=== PATIENT | female | born 1990 | race Caucasian/White ===

== ENCOUNTER 2020-08-24 17:16 | Emergency (ER) | payer SELFPAY ==
[~2020-08-24] VITALS: Wt 56.7 kg
[~2020-08-24 17:16] MED LIST: ATIVAN1 MG PO; DIFLUCAN100 MG PO; KETOCONAZOLE S TP; MACROBID100 M1 PO; NO DAILY MEDS; PRENATAL1 TA1 PO; PROVENTIL0.09 MG/AC IH; ROBITUSSIN DM120 ML PO; ZITHROMAX Z PA250 MG PO
[2020-08-24] MEDS ORDERED: Tobrex Ophth S2.5 ML OPH (17:37)
== END 2020-08-24 17:39 | disposition home or self-care (01) ==
LOC: ED 17:16
DX: H00.016 Hordeolum externum left eye, unspecified eyelid (principal); Z79.899 Other long term (current) drug therapy

== ENCOUNTER 2025-09-19 10:53 | Emergency (ER) | payer OTHER ==
[~2025-09-19] VITALS: Ht 170.1 cm; Wt 49.9 kg
[~2025-09-19 10:53] MED LIST changes: +Tobrex Ophth S2.5 ML OPH
[2025-09-19 12:05] LABS: BASO # 0.1 10*3/uL (0.0-0.1); BASO % 1.5 % (0.0-1.0); EOS # 1.4 10*3/uL (0.0-0.4); EOS % 15.9 % (1.0-4.0); MEAN CELL VOLUME 93.8 fl (81.0-99.0); MEAN CORPUSCULAR HGB 31.1 pg (27.0-31.0); MEAN PLATELET VOLUME 9.6 fl (9.6-12.3); MONO # 0.5 10*3/uL (0.1-1.0); MONO % 5.3 % (3.0-9.0); NEUT # 3.9 10*3/uL (2.3-7.9); NEUT % 44.8 % (47.0-73.0); NUCLEATED RED BLOOD CELL 0.0 % (0.0-0.0); NUCLEATED RED BLOOD CELL 0.0 10*3/uL (0.0-0.0); PLATELET COUNT AUTOMATED 311 10*3/uL (130-400); RED CELL DISTRI WIDTH 13.3 % (0-14.5)
[2025-09-19 12:23] LABS: BUN 9 mg/dl (9-23); SGPT/ALT 10 U/L (5-49)
[2025-09-19] MEDS ORDERED: ZITHROMAX250 MG PO (13:00)
[2025-09-19] MEDS ORDERED: MEDROL DOSEPAK4 MG PO (13:00)
[2025-09-19] MEDS ORDERED: ALBUTEROL 8 GM INHALER INH ONE (13:05)
[2025-09-19] MEDS ORDERED: BENZONATATE100 M1 PO (13:06)
== END 2025-09-19 13:36 | disposition home or self-care (01) ==
LOC: ED 10:53
PROVIDERS: Nurse Practitioner
DX: J40 Bronchitis, not specified as acute or chronic (principal); F32.A Depression, unspecified; F90.9 Attention-deficit hyperactivity disorder, unspecified type; F17.290 Nicotine dependence, other tobacco product, uncomplicated; Z79.899 Other long term (current) drug therapy; Z20.822 Contact with and (suspected) exposure to COVID-19